=== PATIENT | male | born 1935 | race Caucasian/White ===

== ENCOUNTER → 2025-01-06 12:39 | Outpatient (REF) | payer MEDICARE, SELFPAY ==
[2025-01-06 13:17] LABS: % Basophils 0.6 % (0-2); % Eosinophils 2.6 % (0-6); % Immature Granulocytes 0.2 % (0-0.5); % Lymphocytes 36.9 % (20.5-51.1); % Neutrophils 50.7 % (42.2-75.2); Absolute Eosinophils 0.1 10^3/uL (0-0.7); Absolute Monocytes 0.5 10^3/uL (0.1-0.6); Absolute Neutrophils 2.7 10^3/uL (1.4-6.5); Hematocrit 40.5 % (39.0-52.0); Hemoglobin 13.3 g/dL (13.0-18.0); Mean Corp Hgb Conc. 32.8 g/dL (33.0-37.0); Mean Corpuscular Hgb 33.2 pg (27.0-31.0); Mean Platelet Volume 10.3 fL (7.4-10.4); Nucleated Red Blood Cells % 0 % (-); Platelet Count 150 10^3/uL (130-400); Red Blood Cell Count 4.01 10^6/uL (4.70-6.10); Red Cell Dist. Width 15.5 % (11.5-14.5); White Blood Cell Count 5.4 10^3/uL (4.8-10.8)
[2025-01-06 13:21] LABS: Blood Urea Nitrogen 10 mg/dl (9-20); Calcium 8.6 mg/dl (8.4-10.2); Carbon Dioxide 32 mmol/L (22-30); Chloride 104 mmol/L (98-107); Glucose 86 mg/dl (70-99); HDL Cholesterol 53 mg/dl; LDL Cholesterol, Calculated 68 mg/dl; Potassium 4.3 mmol/L (3.5-5.1); Sodium 137 mmol/L (135-145); Total Cholesterol 134 mg/dl (50-199); Triglyceride 66 mg/dl (10-149); Very Low Density Lipoprotein 13 mg/dl (0-30); eGFR > 60.00
[2025-01-06 13:38] LABS: Vitamin D, 25-OH*** 14.6 ng/mL (30-80)
[2025-01-06 13:52] LABS: TSH Reflex To Free T4 2.93 uIU/ml (0.47-4.68)
[2025-01-06 14:11] LABS: Vitamin B12 246 pg/ml (239-931)
[2025-01-07 09:20] LABS: Glycohemoglobin (HgbA1c) 5.5 % (4.0-5.6)
== END ==
LOC: OLABSOL 12:39
PROVIDERS: ATTENDING PHYSICIAN Nurse Practitioner Adult Health
DX: E78.5 Hyperlipidemia, unspecified (principal); D11.9 Benign neoplasm of major salivary gland, unspecified; D51.9 Vitamin B12 deficiency anemia, unspecified; E55.9 Vitamin D deficiency, unspecified; D64.9 Anemia, unspecified; R94.4 Abnormal results of kidney function studies; E03.9 Hypothyroidism, unspecified; Z79.899 Other long term (current) drug therapy
CPT/HCPCS: 36415; 80048; 80061; 82306; 82607; 83036; 84443; 85025

== ENCOUNTER 2025-05-05 18:33 | Inpatient (IN) | payer MEDICARE, SELFPAY ==
[2025-05-05 13:06] VITALS: BP 160/95
--- NOTE | 2025-05-05 13:36 | ED.GENMED ---
History of Present Illness
General
Chief Complaint: Abdominal Symptoms
Source: family
Time Seen by Provider: 05/05/25 13:15
History of Present Illness
History of Present Illness:
89-year-old female brought to the emergency room by ambulance from the [place]. Patient's son is with the patient and provides all the history. Patient resides at [place] due to memory care issues. Her baseline mental status is conversant in the
moment, able to toilet herself and feed herself. 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 Over the past 24 hours the patient has been speaking incoherently,
more confused. Today they were unable to get her out of bed because she seemed to have pain all over. Patient had a fall several days ago which resulted in a nasal fracture. She has ecchymosis about the face. Patient was seen at [place] after
this fall. Reportedly imaging was negative other than the nasal fracture. Patient does take Eliquis for atrial fibrillation. The patient herself is not aware of where she is. She does not offer any complaints when asked but does seem confused.
Phy Exam
Physical Exam
Physical Exam:
General: Sleeping but easily arousable. Oriented to person. Does recognize her son. Appears stated age
Vitals: unremarkable
Head: Ecchymotic area left forehead and ecchymosis noted about the nose and cheeks. Appears old.
Eyes: Pupils equal, EOMI
Throat: Airway intact, no exudates
Neck: Trachea midline
Lungs: Clear and equal b/l
Heart: irregular rate, no murmurs
Abd: Soft, Nontender, No pulsatile mass
Back: No tenderness palpation along the thoracic or lumbar spine. No ecchymosis noted on the back.
Neuro: Cranial nerves intact, muscle strength equal bilaterally
Skin: Warm, dry, no rash
Extremities: pulses equal b/l, ecchymosis left knee and lower leg
Course
Orders/Labs/Results
Orders:
Orders
05/05/25 13:31
Straight cath- Treatment ONCE
05/05/25 13:33
CT Head W/o Iv Contrast Urgent
Comment:
Reason For Exam: altered mental status
Complete Blood Count/With Diff Urgent
Comprehensive Metabolic Panel Urgent
Dig [Digoxin] Urgent
NT-proBNP Urgent
Comment: ADD ON
05/05/25 13:35
Electrocardiogram (*1) Urgent
Reason for Study: Fatigue / Weakness
EKG- Treatment ONCE
05/05/25 14:43
CT Abd/pelvis W Iv Cont Urgent
Comment:
Reason For Exam: abd pain, gross hematuria
05/05/25 14:45
Urinalysis Reflex To Culture Urgent
Date Specimen was Collected: 05/05/25
Time Specimen was Collected: 14:44
Urine Microscopic Reflex Cult Urgent
Urine Culture Urgent
TYREE Source: U
Specimen Description:
Date Specimen was Collected: 05/05/25
Time Specimen was Collected: 14:44
05/05/25 17:27
CefTRIAXone [Rocephin] 1,000 mg IV NOW STA
MetroNIDAZOLE 500 MG/100 ML [Flagyl 500 mg] 100 ml IV NOW
05/05/25 17:54
Admit/Transfer Patient As Directed
Co-Sign Provider:
Level of Care: Inpatient admission
Assign to:: Telemetry
Physician / Group: Arielle
Diagnosis: acute metabolic encephalopathy, possible acute cholecystitis, possible UTI
Reason for Telemetry: Arrhythmia
Date to Stop Telemetry: 05/08/25
Time to Stop Telemetry: 11:00
Reason for Hospitalization: acute metabolic encephalopathy, possible acute cholecystitis, possible UTI
Expected length of stay greater than two midnights?: Yes
ELOS- Estimated Length of Stay in days: 4
I certify the patient meets the requirements for IP care: Yes
PRN Pain Medication Management As Directed
May give lesser potent ordered pain med per pt: Yes
preference::
Protocol:: Medication orders for pain may be administered in a
manner that supports deferring to patient preference
when the pt is:
- Requesting an ordered lesser potent pain medication.
Least to most potent pain medications are defined
as: acetaminophen < NSAID < tramadol < opioids
(morphine, oxycodone, hydromorphone).
- Requesting a lesser dose of the same medication IF
ORDERED.
- Requesting a less intrusive route of administration
if both routes are prescribed by the provider (PO <
IV).
05/05/25 17:57
Code Status As Directed
Resuscitation Status: Do not resuscitate
Reached after discussion with pt or family/Healthcare POA: Yes
05/05/25 17:58
DNR Bracelet Application ONCE
05/05/25 18:01
Add On- LAB Stat
Tests Added?: probnp
05/08/25 11:00
DC Protocol for Telemetry ONCE
Abnormal Lab Results
05/05/25 05/05/25
13:33 14:45
RBC 3.77 L 10^6/uL
(4.70-6.10)
Hgb 12.5 L g/dL
(13.0-18.0)
Hct 37.8 L %
(39.0-52.0)
MCV 100.3 H fL
(80.0-94.0)
MCH 33.2 H pg
(27.0-31.0)
RDW 14.9 H %
(11.5-14.5)
MPV 10.6 H fL
(7.4-10.4)
Chloride 110 H mmol/L
(98-107)
Carbon Dioxide 31 H mmol/L
(22-30)
BUN 24 H mg/dl
(9-20)
Creatinine 0.5 L mg/dL
(0.7-1.3)
Total Bilirubin 1.7 H mg/dl
(0.2-1.3)
Total Protein 6.2 L g/dl
(6.3-8.2)
Albumin 3.4 L g/dl
(3.5-5.0)
Urine Ketones 1+ A
(Negative)
Ur Occult Blood Reflex 4+ A
(Negative)
Urine Bilirubin 1+ A
(Negative)
Urine Urobilinogen 3+ A
(Neg - 1+)
Leukocyte Esterase Rfl 1+ A
(Negative)
Urine RBC >100 A /HPF
(0-2)
Urine Albumin (Reflex) 3+ A
(Neg - Trace)
Digoxin 0.7 L ng/ml
(0.8-2.0)
05/05/25 13:33
05/05/25 13:33
Vital Signs
Initial and Last Documented VS:
Initial Vital Signs
Temp Pulse Resp BP Pulse Ox
98.2 F 93 20 160/95 99
05/05/25 13:06 05/05/25 13:06 05/05/25 13:06 05/05/25 13:06 05/05/25 13:06
Last Documented Vital Signs
Temp Pulse Resp BP Pulse Ox
98.2 F 101 14 150/76 96
05/05/25 13:06 05/05/25 18:41 05/05/25 18:30 05/05/25 18:00 05/05/25 18:30
MDM/Problems Addressed
Differential Diagnosis Includes:
Delayed subdural, CVA, electrolyte abnormality such as hyponatremia, urinary tract infection
MDM/Problems Addressed:
Presents with progressive confusion, apparently some abdominal pain earlier. Her abdominal exam today does not show significant pain to palpation. She urinated here and had gross bloody urine. Therefore CT of the abdomen pelvis obtained which
shows acute cholecystitis along with some inflammatory changes of the bowel with the bladder. Will start with IV antibiotics to cover abdomen. Patient will require hospitalization.
*Radiology
Radiology exam reviewed: radiology read reviewed
*Pulse Oximetry
SaO2: 97
Oxygen Mode of Delivery: Room air
Patient hypoxic: no
*Critical Care Note
Total Time (30-74mins, 75-104mins- exclusive of procedures): Not Applicable
ED Attending Note
-
Portions of this chart may have been created with voice recognition software.� Occasional wrong word or��sound alike� substitutions may have occurred due to the inherent limitations of voice recognition software.
Discharge Plan
Departure
Patient Disposition: Admit
Date of Disposition: 05/05/25
Time of Disposition: 17:33
Presentation/result/management discussed w/ accepting MD/DO: Hospitalist
Condition: Fair
Discharge Problem:
Altered mental status, Cholecystitis
Interventions
Interventions:
*Risk Screen - Suicide Last Done: 05/05/25 13:29
*General Assessment Last Done: 05/05/25 13:30
*Neglect/Abuse Screening Last Done: 05/05/25 13:29
*ED COVID-19 Vaccine History Last Done: 05/05/25 13:30
HN-[facility]-Pzhsxcclyg Assessment Last Done: 05/05/25 18:40
[2025-05-05 13:53] LABS: Hematocrit 37.8 % (39.0-52.0); Hemoglobin 12.5 g/dL (13.0-18.0); Mean Corp Hgb Conc. 33.1 g/dL (33.0-37.0); Mean Corpuscular Volume 100.3 fL (80.0-94.0); Nucleated Red Blood Cells % 0 % (-); Platelet Count 176 10^3/uL (130-400); Red Cell Dist. Width 14.9 % (11.5-14.5)
[2025-05-05 14:06] LABS: ALT (SGPT) 17 U/L (0-50); AST (SGOT) 36 U/L (17-59); Albumin 3.4 g/dl (3.5-5.0); Alkaline Phosphatase 73 U/L (38-126); Blood Urea Nitrogen 24 mg/dl (9-20); Calcium 8.7 mg/dl (8.4-10.2); Carbon Dioxide 31 mmol/L (22-30); Chloride 110 mmol/L (98-107); Digoxin 0.7 ng/ml (0.8-2.0); Glucose 89 mg/dl (70-99); Potassium 4.2 mmol/L (3.5-5.1); Sodium 141 mmol/L (135-145); Total Protein 6.2 g/dl (6.3-8.2); eGFR > 60.00
[2025-05-05 14:51] LABS: Urine Character Cloudy (Clear)
[2025-05-05 15:00] LABS: Urine Red Blood Cell >100 /HPF (0-2)
[2025-05-05 17:00] VITALS: BP 134/96
[2025-05-05 17:32] VITALS: BP 142/107
--- NOTE | 2025-05-05 17:37 | HPS.HSE ---
Family Physician
-
Family Physician: JULIO VERA NP
Chief Complaint
-
confusion
History of Present Illness
89 y/o F with PMHx:
Dementia
Recent nasal bone fracture
HLD
PAF
who presents with confusion. Recently the patient had a fall and was seen at [facility] where she was diagnosed with a nasal fracture. History is obtained from patient's son at bedside. Over the last 24 hours she has had increased
confusion and her speech has been more disorganized. Due to the patient's dementia she cannot provide her own history. History is obtained from the patient's son at bedside. There are no reports of fevers, diaphoresis, chest pain, shortness of
breath, cough, nausea, vomiting, diarrhea. The son does mention that she has been on the Lasix and recently the dose was increased due to increased lower extremity edema.
On review of the documents from the [facility] transfer of care form it stated that yesterday the patient had congestion and shortness of breath and was given an antibiotic and Mucinex. Today the patient had
abdominal pain and blood in the toilet. In the ER the patient had gross hematuria.
Medical History
Past Medical History
Past Medical History: Reports Other (as per HPI)
Past Surgical History: Reports Other (N/A)
Social History
Tobacco: Non-smoker
Alcohol: None
Drug: None
Family History
Family History: Not pertinent
Allergies / Home Medications
Allergies reflects when Allergies were last updated in [employer].
Home Medications with original date entered in [employer]
Allergy/Medication List:
Allergies
Allergy/AdvReac Type Severity Reaction Status Date / Time
Penicillins Allergy Unknown Unknown Verified 05/05/25 13:14
Home Medications
alprazolam 0.25 mg tablet 0.25 mg PO DAILY 05/05/25
apixaban 2.5 mg tablet (Eliquis) 2.5 mg PO BID 05/05/25
azithromycin 250 mg tablet 0 mg PO .COMPLEX 05/05/25
cholecalciferol (vitamin D3) 25 mcg (1,000 unit) tablet (Vitamin D3) 25 mcg PO DAILY 05/05/25
digoxin 125 mcg (0.125 mg) tablet 125 mcg PO DAILY 05/05/25
docusate sodium 100 mg capsule 100 mg PO DAILY 05/05/25
donepezil 10 mg tablet 10 mg PO HS 05/05/25
escitalopram oxalate 10 mg tablet 10 mg PO DAILY 05/05/25
furosemide 20 mg tablet 20 mg PO DIRECTED 05/05/25
guaifenesin 600 mg tablet, extended release 12 hr 600 mg PO BID 05/05/25
lidocaine 4 % topical patch 1 patch topical DAILY 05/05/25
loperamide 2 mg capsule 2 mg PO Q4HPRN PRN loose stools 05/05/25
metoprolol succinate 25 mg tablet,extended release 24 hr 25 mg PO DAILY 05/05/25
naproxen 500 mg tablet 500 mg PO BID 05/05/25
phenylephrine 0.25 %-mineral oil 14 %-petrolatm 74.9 % rectal ointment (Preparation H) 1 applic FL Q6HPRN PRN rectal pain 05/05/25
simvastatin 10 mg tablet 10 mg PO DAILY 05/05/25
Review of Systems
-
Unable to obtain full review of systems at this time due to: Dementia
Physical Exam
Vital Signs
Vital Signs
Temp Pulse Resp BP Pulse Ox
98.2 F 96 22 160/95 96
05/05/25 13:06 05/05/25 17:00 05/05/25 13:30 05/05/25 13:06 05/05/25 17:00
Physical Exam
General: Other (.)
Laboratory Results
-
05/05/25 13:33
05/05/25 13:33
Laboratory Results
Total Bilirubin 1.7 mg/dl (0.2-1.3) H 05/05/25 13:33
AST 36 U/L (17-59) 05/05/25 13:33
ALT 17 U/L (0-50) 05/05/25 13:33
Alkaline Phosphatase 73 U/L (38-126) 05/05/25 13:33
Impression/Plan
-
Gen: NAD, AAOx1
Eyes: EOMI, PERRLA, no scleral icterus.
ENMT: Nasal bridge abrasion, nasal and periorbital ecchymoses
Neck: supple.
CV: RRR, +S1/S2, no m/r/g.
Resp: CTAB, no rales, wheezes, or rhonchi.
Abd: +BS, soft, NT, ND
Skin: No rashes. 2+ bilateral lower extremity edema, ecchymoses throughout the left lower extremity
Neuro: CN 2-12 intact, non-focal.
Psych: Normal mood and affect.
CT brain: No acute intracranial abnormality noted.
CT A/P w/o contrast:
1. Mild diffuse pancolitis (probably infectious in etiology).
2. Severe colonic diverticulosis.
3. Small volume of pelvic ascites.
4. Moderate enteritis throughout the jejunum.
5. Severe gallbladder wall thickening, gallbladder distention, and cholelithiasis.
6. Mild hepatomegaly with suggestion of passive hepatic venous congestion.
7. Mild diffuse urinary bladder wall thickening suggesting cystitis.
8. Moderate cardiomegaly with evidence for right heart failure.
9. Moderate-sized right and small left pleural effusions.
10. Severe multilevel lumbar discogenic degenerative disease.
Acute metabolic encephalopathy:
-in the setting of underlying dementia/baseline cognitive dysfunction
-U/A with > 100 RBCs, unable to assess WBC as obscured by RBCs, 1+ LE, nitrite negative, 6-10 squamous cells
-CT A/P notable for pancolitis, moderate enteritis throughout the jejunum, severe GB wall thickening, GB distention, and cholelithiasis
-Patient given Rocephin and Flagyl in the ER, will continue
-Supportive IV fluids, NPO, surgical and GI evaluation
Hematuria:
-exacerbated by Eliquis
-hold Eliquis
-trend Hb
-c/s urology
PAF:
-cont BB/Dig
-hold Eliquis with hematuria
B/L LE edema:
-with worsening bilateral lower extremity edema requiring an increase in the patient's Lasix prior to admission I am concerned the patient has underlying congestive heart failure. As per discussion with the patient's family she has never had an
official diagnosis of congestive heart failure.
-check echocardiogram and proBNP
-daily weights, I's/O's
Dementia:
-cont Aricept/lexapro
DNR
DVT proph: With edema in both lower extremities and ecchymoses in the left lower extremity in the setting of hematuria, I am opting for venous foot pumps only at this time for DVT prophylaxis
[2025-05-05 18:00] VITALS: BP 150/76
[2025-05-05] MEDS: ROCEPHIN 1000 MG IV (18:27)
[2025-05-05] MEDS: FLAGYL 500 MG 100 IV (18:29)
[2025-05-05 20:13] VITALS: BP 154/103
[2025-05-05] MEDS: TYLENOL 650 MG PO (21:01)
[2025-05-05] MEDS: ARICEPT 10 MG PO (21:01)
[2025-05-05] MEDS: D5/0.45%NACL 1000 IV (21:20)
[2025-05-05 23:31] VITALS: BP 139/89
[2025-05-06] VITALS (7 sets, daily range): BP systolic 105–151; BP diastolic 62–88; PULSE 81; O2SAT 96; BMI 21.4
[2025-05-06] MEDS: FLAGYL 500 MG 100 IV ×3 (01:07→18:22)
--- NOTE | 2025-05-06 05:34 | W.PN.UPDATE ---
Addendum entered and electronically signed by PHILOMENA Pricne 05/06/25 05:39:
~ 5:30 am BP 151/86, HR 110-120's. (added BP)
Original Note:
Update Note
Progress Note Update
~ 5:30 am, Pt in afib, HR 110-120's. Metoprolol 25 mg PO am dose given early.
[2025-05-06] MEDS: TOPROL XL 25 MG PO ×2 (05:36→08:34)
--- NOTE | 2025-05-06 05:39 | PTCARENOTE ---
pt was admitted to 4E. AAOX1. forgetful and confuse. Afib 90-100's in the monitor. Lung sounds are diminished, dyspneic w/ exertion. saO2 94% RA. tachypneic. abd tender to palpitation. Hematuria. Pt was bladder scan twice. OOBx1. Pt HR went up to
120's and metoprolol 25 mg AM dose was given early per D[employer]AME OPERATOR. Call lin within reach.
[2025-05-06 07:36] LABS: Hematocrit 35.4 % (37.0-47.0); Hemoglobin 11.6 g/dL (12.0-16.0); Mean Corp Hgb Conc. 32.8 g/dL (33.0-37.0); Mean Corpuscular Volume 99.7 fL (81.0-99.0); Platelet Count 158 10^3/uL (130-400); Red Cell Dist. Width 14.6 % (11.5-14.5)
[2025-05-06 08:00] LABS: ALT (SGPT) 16 U/L (0-35); AST (SGOT) 30 U/L (14-36); Albumin 3.0 g/dl (3.5-5.0); Alkaline Phosphatase 71 U/L (38-126); Blood Urea Nitrogen 20 mg/dl (7-17); Calcium 8.4 mg/dl (8.4-10.2); Carbon Dioxide 26 mmol/L (22-30); Chloride 111 mmol/L (98-107); Estimated Creatinine Clearance 57 ml/min; Glucose 91 mg/dl (70-99); Potassium 3.8 mmol/L (3.5-5.1); Sodium 140 mmol/L (135-145); Total Protein 5.5 g/dl (6.3-8.2); eGFR > 60.00
--- NOTE | 2025-05-06 08:05 | W.PN.HOSP.TC ---
Today's Communication/Plan
-
see plan
Assessment / Plan
Assessment / Plan
Gen: NAD, AAOx3.
Eyes: EOMI, PERRLA, no scleral icterus.
Neck: supple.
CV: RRR, +S1/S2, no m/r/g.
Resp: CTAB, no rales, wheezes, or rhonchi.
Abd: +BS, soft, NT, ND
Skin: No rashes.
Neuro: CN 2-12 intact, non-focal.
Psych: Normal mood and affect.
Gen: NAD, AAOx1
Eyes: EOMI, PERRLA, no scleral icterus.
ENMT: Nasal bridge abrasion, nasal and periorbital ecchymoses
Neck: supple.
CV: RRR, +S1/S2, no m/r/g.
Resp: CTAB, no rales, wheezes, or rhonchi.
Abd: +BS, soft, NT, ND
Skin: No rashes. 2+ bilateral lower extremity edema, ecchymoses throughout the left lower extremity
Neuro: CN 2-12 intact, non-focal.
Psych: Normal mood and affect.
CT brain: No acute intracranial abnormality noted.
CT A/P w/o contrast:
1. Mild diffuse pancolitis (probably infectious in etiology).
2. Severe colonic diverticulosis.
3. Small volume of pelvic ascites.
4. Moderate enteritis throughout the jejunum.
5. Severe gallbladder wall thickening, gallbladder distention, and cholelithiasis.
6. Mild hepatomegaly with suggestion of passive hepatic venous congestion.
7. Mild diffuse urinary bladder wall thickening suggesting cystitis.
8. Moderate cardiomegaly with evidence for right heart failure.
9. Moderate-sized right and small left pleural effusions.
10. Severe multilevel lumbar discogenic degenerative disease.
Echo: EF 30-35%. Global hypokinesis with septal and apical dyskinesis. Mildly enlarged RV size. Normal RV systolic function. Severely dilated LA. Massively dilated RA. Mild to mod MR/AR. Very severe (torrential) TR. Estimated PASP 40-45 mmHg.
Acute metabolic encephalopathy:
-in the setting of underlying dementia/baseline cognitive dysfunction
-U/A with > 100 RBCs, unable to assess WBC as obscured by RBCs, 1+ LE, nitrite negative, 6-10 squamous cells
-CT A/P notable for pancolitis, moderate enteritis throughout the jejunum, severe GB wall thickening, GB distention, and cholelithiasis
-cont Rocephin/Flagyl
-as per discussion with Dr. Sanchez, no acute cholecystitis at this time. CT scan findings are likely due to passive congestion from congestive heart failure.
-advanced to clears
-stop IVFs with acute HFrEF below
-appreciate GI. As per discussion with pt's son, conservative management only. He would not want the patient have a colonoscopy.
-patient does have rectal prolapse which can lead to rectal bleeding.
Hematuria:
-exacerbated by Eliquis
-holding Eliquis
-trend Hb
-urology saw in c/s
-will monitor degree of hematuria over the next 24 hours prior to decision regarding resumption of Eliquis
PAF:
-with RVR
-increase Toprol XL to 50mg daily
-cont Dig
-holding Eliquis with hematuria as above
Acute HFrEF:
-B/L LE edema that was worsening on admission
-proBNP 2320
-case discussed with Dr. Gardner. EF 30%, severe TR
-c/s cards
-daily weights, I/O's
-initiate FR once diet started
-start Lasix 40mg IV BD
-cont BB
-further GDMT as hemodynamics allow
Dementia:
-cont Aricept/lexapro
Considering the patient's overall burden of pathology and her current active problem of acute heart failure with reduced ejection fraction in the setting of dementia it is reasonable to consult palliative care.
DNR
DVT proph: With edema in both lower extremities and ecchymoses in the left lower extremity in the setting of hematuria, I am opting for venous foot pumps only at this time for DVT prophylaxis. Might resume Eliquis tomorrow as above.
Total time spent on today's encounter was 50 minutes which included time spent in counseling the patient/family regarding diagnosis and treatment plan as listed above, goals of care, and symptom management. Case was discussed with nursing staff,
specialists, and care coordinators/case management. All labs and imaging personally reviewed by me. Remainder the time spent in detailed review of previous records, lab data, imaging, and other medical provider documentation.
Anticipated Discharge: > 48 hours
Subjective/Interval History
-
Date of Service: May 06, 2025
Objective Data
-
Labs:
Laboratory Results
05/06/25
07:09
WBC 4.9
Hgb 11.6 L
Hct 35.4 L
Plt Count 158
Sodium 140
Potassium 3.8
Chloride 111 H
Carbon Dioxide 26
BUN 20 H
Creatinine 0.5 L
Glucose 91
Calcium 8.4
Total Bilirubin 1.6 H
AST 30
ALT 16
Alkaline Phosphatase 71
Vital Signs:
Vital Signs
Temp Pulse Resp BP Pulse Ox
97.7 F 111 16 131/88 97
05/06/25 07:46 05/06/25 07:46 05/06/25 07:46 05/06/25 07:46 05/06/25 07:46
I&O
05/05/25 05/06/25 05/07/25
06:59 06:59 06:59
Intake Total 450 / 450
Output Total 100 / 100
Balance 350 / 350
[2025-05-06] MEDS: LIDOCAINE 4% PATCH 1 PATCH TOPICAL (08:32)
[2025-05-06] MEDS: COLACE 100 MG PO (08:32)
[2025-05-06] MEDS: LEXAPRO 10 MG PO (08:32)
[2025-05-06] MEDS: LIPITOR 10 MG PO (08:32)
--- NOTE | 2025-05-06 09:12 | CON.CAR ---
Addendum entered and electronically signed by Irineo Gardner MD 05/06/25 11:14:
Patient seen and examined in collaboration with LEATHER STAKER; agree with below.
- 89-year-old female with likely permanent atrial fibrillation (on Eliquis), dyslipidemia, and significant dementia; cardiology consulted for an LVEF of 30% and very severe TR on echocardiogram.
- The patient had hematuria in the ER; Eliquis now being held.
- Patient also had a recent fall and suffered a nasal fracture.
- Uncertain as to whether the patient can safely resume anticoagulation due to bleeding risk and fall risk; especially given her dementia, placing her back on Eliquis would likely be high risk.
- Conservative management from a cardiac standpoint in terms of her CHF; poor candidate for aggressive measures.
- Continue Lasix 40 mg IV BID.
- Continue Toprol-XL 50 mg daily
- Continue digoxin 125 mcg p.o. daily.
- Will start lisinopril 5 mg daily for GDMT.
- Will start spironolactone 12.5 mg daily for GDMT.
- No SGLT2 inhibitor secondary to possible UTI/hematuria.
- Colitis management as per primary team/GI.
- Will reevaluate tomorrow.
Original Note:
Consultation
Consultation Request
Date/Time Consultation Requested: 05/06/25 0850
Date/Time Consultation Performed: 05/06/25 0930
Requesting Provider: Dr. Guzmán
Performing Provider: Anisa QUACH for Dr. Gardner
Reason for Consultation: cardiomyopathy, tricuspid regurgitation
Medical History
-
Chief Complaint: abdominal pain
History of Present Illness:
89 y/o female with history fo AFIB on Eliquis, dementia, dyslipidemia. She had a recent fall with nasal fracture ([place]). She is here from her health facility after she reported abdominal pain. She was also felt to be more confused. Hematuria was
seen in ER. CT scan is abnormal as below. She is on antibiotics. She has BLE edema and echo was done and showed EF 30% and very severe TR (details as below), and so we are consulted. She has dementia and is not a good historian, but is calm and
pleasant and denies any pain at this time. She is in no distress at the time of my assessment.
Past Medical History
Past Medical History: Arrhythmias, Hypercholesterolemia and Other (dementia)
Social History
Living: Other ([facility])
Family History
Family History: Reviewed & Not Pertinent
Allergies / Home Medications
Allergy/AdvReac Type Severity Reaction Status Date / Time
Penicillins Allergy Unknown Verified 05/05/25 20:00
�Medication �Instructions �Recorded �Confirmed �Type
alprazolam 0.25 mg tablet 0.25 mg PO DAILY 05/05/25 05/05/25 History
apixaban 2.5 mg tablet (Eliquis) 2.5 mg PO BID 05/05/25 05/05/25 History
azithromycin 250 mg tablet 0 mg PO .COMPLEX 05/05/25 05/05/25 History
cholecalciferol (vitamin D3) 25 25 mcg PO DAILY 05/05/25 05/05/25 History
mcg (1,000 unit) tablet (Vitamin
D3)
digoxin 125 mcg (0.125 mg) tablet 125 mcg PO DAILY 05/05/25 05/05/25 History
docusate sodium 100 mg capsule 100 mg PO DAILY 05/05/25 05/05/25 History
donepezil 10 mg tablet 10 mg PO HS 05/05/25 05/05/25 History
escitalopram oxalate 10 mg tablet 10 mg PO DAILY 05/05/25 05/05/25 History
furosemide 20 mg tablet 20 mg PO DIRECTED 05/05/25 05/05/25 History
guaifenesin 600 mg tablet, 600 mg PO BID 05/05/25 05/05/25 History
extended release 12 hr
lidocaine 4 % topical patch 1 patch topical DAILY 05/05/25 05/05/25 History
loperamide 2 mg capsule 2 mg PO Q4HPRN PRN loose stools 05/05/25 05/05/25 History
metoprolol succinate 25 mg 25 mg PO DAILY 05/05/25 05/05/25 History
tablet,extended release 24 hr
naproxen 500 mg tablet 500 mg PO BID 05/05/25 05/05/25 History
phenylephrine 0.25 %-mineral oil 1 applic NV Q6HPRN PRN rectal pain 05/05/25 05/05/25 History
14 %-petrolatm 74.9 % rectal
ointment (Preparation H)
simvastatin 10 mg tablet 10 mg PO DAILY 05/05/25 05/05/25 History
Review of Systems
-
Unable to obtain full review of systems at this time due to: Dementia
History Source: Other (chart)
Abdomen/GI: Abdominal Pain
Physical Exam
Vital Signs
Temp Pulse Resp BP Pulse Ox
97.7 F 111 16 131/88 97
05/06/25 07:46 05/06/25 08:34 05/06/25 07:46 05/06/25 08:34 05/06/25 07:46
Lab Results
05/06/25 07:09
05/06/25 07:09
Qua-E-Rvukzbyfcxi Pept 2320 pg/ml 05/05/25 13:33
Physical Exam
General: Well Developed, Well Nourished and No Apparent Distress
HEENT: Normocephalic and Anicteric
Respiratory: Crackles (b/l bases)
Cardiac: Irregular Rhythm and Murmur (II/IV diastolic)
Musculoskeletal: Edema (+1-2 BLE edema)
Skin: Warm and Dry
Neuro: Awake, Alert and Oriented (to self only)
Psych: Calm
Impression / Plan
-
HFrEF: possibly acute, but not clear
-05/06/25: Left ventricular ejection fraction is 30-35%. Global hypokinesis with septal and apical dyskinesis. Mildly enlarged right ventricular size. Normal right ventricular systolic function. Severely dilated left atrium. Massively dilated right
atrium. Mild to moderate mitral regurgitation. Mild to moderate aortic regurgitation. Very severe (torrential) tricuspid regurgitation. Estimated pulmonary artery pressure of 40-45 mmHg. Pleural effusion present.
-conservative management appropriate here- will add GDMT- metoprolol increased, spironolactone and lisinopril added. Question of UTI, so will not add SGLT2I at this time.
-type of CM unknown. Checking trops.
-agree with IV lasix, which requires intensive monitoring
AFIB, likely permanent:
-rate is okay, follow with increase in rate meds
-on metoprolol, digoxin, and Eliquis as OP. Eliquis is held due to hematuria.
Hematuria:
-urology is consulted
-Eliquis held
-question of UTI as well, on ABX
Pancolitis, enteritis, GB thickening:
-Abd/pelvis CT: 1.Mild diffuse pancolitis (probably infectious in etiology). 2. Severe colonic diverticulosis. 3. Small volume of pelvic ascites. 4. Moderate enteritis throughout the jejunum. 5. Severe gallbladder wall thickening, gallbladder
distention, and cholelithiasis. 6. Mild hepatomegaly with suggestion of passive hepatic venous congestion. 7. Mild diffuse urinary bladder wall thickening suggesting cystitis.8. Moderate cardiomegaly with evidence for right heart failure.9.
Moderate-sized right and small left pleural effusions. 10. Severe multilevel lumbar discogenic degenerative disease.
-patient on ABX
-GI c/s
Dementia:
-on meds and lives in facility
Data Reviewed
-
EKG: Tracing Personally Visualized and interpreted (AFIB in 80's)
CT Scan: Report Reviewed by me (as ntoed)
Medical Tests (Nuc Med, Echo etc): Report Reviewed by me (as noted)
Labs: Labs Reviewed by me
[2025-05-06] MEDS: LASIX 40 MG IV ×2 (09:32→16:38)
--- NOTE | 2025-05-06 09:56 | CON.GI ---
Addendum entered and electronically signed by Elsie Greenfield DO 05/06/25 12:09:
The patient was seen and examined by me independently in collaboration with the nurse practitioner.
Past medical history/social history/medications/allergies/family history reviewed.
Lab data and imaging data reviewed.
Leni Cantor is an 89 y.o. female with pmhx atrial fibrillation on Eliquis and memory issues brought in with worsening mental status, confused and garbled speech per son. Patient has dementia, unable to obtain history. She denies any nausea,
vomiting, abdominal pain at the moment. It was documented that she had worsening congestion and SOB, given an antibioic and mucinex. Yesterday, she had abdominal pain, blood in the toilet. In the ER, was noted to have gross hematuria. CT A/P with IV
contrast shows cardiomegaly with severe right atrial enlargement. Moderate right and small left pleural effusions with adjacent compressive subsegmental atelectasis. The liver is mildly enlarged. Intrahepatic inferior vena cava and hepatic veins
are distended consistent with right heart failure. Mild diffuse hepatic steatosis. The gallbladder is distended with cholelithiasis. There is severe wall thickening and submucosal edema throughout the gallbladder wall. Mild diffuse pancreatic
parenchymal atrophy. The stomach is nearly completely collapsed. There is mild wall thickening throughout the duodenum and moderate wall thickening throughout most of the jejunum. Ileal small bowel loops appear normal without evidence of abnormal
distention or thickening. Severe diverticulosis throughout the ascending colon. A mild amount of circumferential wall thickening throughout the proximal mid transverse colon. There is mild circumferential wall thickening throughout the descending
colon. There is severe diverticulosis throughout the distal descending colon and proximal sigmoid colon. There is small volume of pelvic ascites. Evidence of JANNETH-BSO. Mild diffuse urinary bladder wall thickening. Severe multilevel lumbar
discogenic degenerative disease.
Of note, she was recently hospitalized at [facility] on 04/26/2025 after being found down, decreased mental status and brought in as a level 2 trauma. She was found to have a nasal fracture but otherwise no acute abnormalities found.
Hemoglobin 10.9 --> 12.5 --> 11.6, PLt 158
BUN 25 --> 24 -->20
89 y.o. with afib on eliquis and dementia admitted with change in mental status, abdominal pain, and hematochezia with hematuria upon arrival, found to have evidence of right-sided heart failure, acute cholecystitis, enteritis, colitis and cystitis
on CT A/P.
Plan:
-Hemoglobin overall stable. Urine with occult blood and >100 RBC.
-Discussed with son, only wants conservative management, no colonoscopy.
-Hemoglobin stable, prolapse on exam, could have some mild rectal irritation, can use topical hydrocortisone
-If diarrhea, check stool studies, including c.diff and stool culture
-Trend H&H, if concern for active/hemodynamically unstable GI bleeding, get CTA
-Okay for clears, advance as tolerated
GI will sign off, please call with questions
Original Note:
Consultation
-
Date/Time Consultation Requested: 05/05/251999
Date/Time Consultation Performed: 05/06/25 09
Requesting Provider: Nakul Guzmán MD
Performing Provider: PHILOMENA Gallego, Bhavani Greenfield DO
Reason for Consultation: rectal bleeding
Medical History
Chief Complaint / HPI
History of Present Illness:
Pt is a 89yo with hx afib on Eliquis, dementia, HTN, hyperlipidemia, recent fall with nasal fracture presents to ER with change in mental status with recent congestion with Guaifenesin and Zithromax therapy. She was also note with lower abdominal
pain and bright red blood on the toilet. During recent admission she had walker CT scan 04/26/25 with fall with normal abdominal imaging. Since admission she is noted wih brown/burgundy stool. She repeated CT A/p since admission with noted with
diffuse walker colitis, jejunal enteritis, diverticulosis, small amount pelvic ascites, severe GBWT, HM with passive congestion, cystitis, CM with right heart failure, DDD and moderate right and small left effusion.
At this time pt is forgetful. Per review with family complaints of intermittent abdominal pain in past of unclear cause. No known hx colonoscopy in past. hx dysphagia with stress years ago. No diarrhea constipation or rectal bleeding that
they are aware of in past.
Past Medical History
Past Medical History: Arrhythmias (afib on Eliquis), HTN, Hypercholesterolemia, Psychiatric (dementia ) and Other (fall with nasal fx )
Past Surgical History: Gynecological (hysterectomy)
Social History
Tobacco: Non-Smoker
Alcohol: None
Drug: None
Living: Other ([facility] )
Employment: Retired
Family History
Family History: Other (no family hx colon CA or polyps)
Allergies / Home Medications
Allergy/AdvReac Type Severity Reaction Status Date / Time
Penicillins Allergy Unknown Verified 05/05/25 20:00
�Medication �Instructions �Recorded
alprazolam 0.25 mg tablet 0.25 mg PO DAILY 05/05/25
apixaban 2.5 mg tablet (Eliquis) 2.5 mg PO BID 05/05/25
azithromycin 250 mg tablet 0 mg PO .COMPLEX 05/05/25
cholecalciferol (vitamin D3) 25 25 mcg PO DAILY 05/05/25
mcg (1,000 unit) tablet (Vitamin
D3)
digoxin 125 mcg (0.125 mg) tablet 125 mcg PO DAILY 05/05/25
docusate sodium 100 mg capsule 100 mg PO DAILY 05/05/25
donepezil 10 mg tablet 10 mg PO HS 05/05/25
escitalopram oxalate 10 mg tablet 10 mg PO DAILY 05/05/25
furosemide 20 mg tablet 20 mg PO DIRECTED 05/05/25
guaifenesin 600 mg tablet, 600 mg PO BID 05/05/25
extended release 12 hr
lidocaine 4 % topical patch 1 patch topical DAILY 05/05/25
loperamide 2 mg capsule 2 mg PO Q4HPRN PRN loose stools 05/05/25
metoprolol succinate 25 mg 25 mg PO DAILY 05/05/25
tablet,extended release 24 hr
naproxen 500 mg tablet 500 mg PO BID 05/05/25
phenylephrine 0.25 %-mineral oil 1 applic MI Q6HPRN PRN rectal pain 05/05/25
14 %-petrolatm 74.9 % rectal
ointment (Preparation H)
simvastatin 10 mg tablet 10 mg PO DAILY 05/05/25
Review of Systems
-
Unable to obtain full review of systems at this time due to: Dementia
History Source: Patient and Family
Constitutional: Reports No Symptoms
EENT: Reports No Symptoms
Respiratory: Reports No Symptoms
Abdomen/GI: Reports Abdominal Pain
: Reports No Symptoms
Musculoskeletal: Reports No Symptoms
Skin: Reports No Symptoms
Neurological: Reports Other (confusion)
Endocrine: Reports No Symptoms
Hematologic/Lymphatic: Reports Bleeding
Vital Signs
Temp Pulse Resp BP Pulse Ox
97.7 F 111 16 131/88 97
05/06/25 07:46 05/06/25 09:32 05/06/25 07:46 05/06/25 09:32 05/06/25 07:46
Physical Exam
Exam
General: Other (confused elderly female with facial bruising)
HEENT: Normocephalic and Anicteric
Respiratory: Clear
Cardiac: Other (tachy)
GI: Soft, Non Tender and Non Distended
Rectal: Other (red blood with noted rectal prolapse with being on comode, no mass and brown liquid mucously stools)
Musculoskeletal: No Clubbing and No Cyanosis
Skin: Warm and Dry
Neuro: Awake, Alert and Other (forgetful)
Psych: Calm
Results
WBC 4.9 10^3/uL (4.8-10.8) 05/06/25 07:09
Hgb 11.6 g/dL (12.0-16.0) L 05/06/25 07:09
Hct 35.4 % (37.0-47.0) L 05/06/25 07:09
MCV 99.7 fL (81.0-99.0) H 05/06/25 07:09
Plt Count 158 10^3/uL (130-400) 05/06/25 07:09
Absolute Neuts (auto) 3.3 10^3/uL (1.4-6.5) 05/05/25 13:33
Sodium 140 mmol/L (135-145) 05/06/25 07:09
Potassium 3.8 mmol/L (3.5-5.1) 05/06/25 07:09
Chloride 111 mmol/L (98-107) H 05/06/25 07:09
Carbon Dioxide 26 mmol/L (22-30) 05/06/25 07:09
BUN 20 mg/dl (7-17) H 05/06/25 07:09
Creatinine 0.5 mg/dL (0.6-1.0) L 05/06/25 07:09
Calcium 8.4 mg/dl (8.4-10.2) 05/06/25 07:09
Total Bilirubin 1.6 mg/dl (0.2-1.3) H 05/06/25 07:09
AST 30 U/L (14-36) 05/06/25 07:09
ALT 16 U/L (0-35) 05/06/25 07:09
Alkaline Phosphatase 71 U/L (38-126) 05/06/25 07:09
Diagnostic Image Results:
05/05/25 CT Abd/pelvis W Iv Cont
1. Mild diffuse pancolitis (probably infectious in etiology).
2. Severe colonic diverticulosis.
3. Small volume of pelvic ascites.
4. Moderate enteritis throughout the jejunum.
5. Severe gallbladder wall thickening, gallbladder distention, and cholelithiasis.
6. Mild hepatomegaly with suggestion of passive hepatic venous congestion.
7. Mild diffuse urinary bladder wall thickening suggesting cystitis.
8. Moderate cardiomegaly with evidence for right heart failure.
9. Moderate-sized right and small left pleural effusions.
10. Severe multilevel lumbar discogenic degenerative disease.
Prior GI Procedures:
EGD: none known per family
Colonoscopy: no know screening per family
Assessment / Plan
-
Pt is a 89yo with hx afib on Eliquis, dementia, HTN, hyperlipidemia, recent fall with nasal fracture presents to ER with change in mental status with recent congestion with Guaifenesin and Zithromax therapy. She was also note with lower abdominal
pain and bright red blood on the toilet. During recent admission she had walker CT scan 04/26/25 with fall with normal abdominal imaging. Since admission she is noted wih brown/burgundy stool. She repeated CT A/p since admission with noted with
diffuse walker colitis, jejunal enteritis, diverticulosis, small amount pelvic ascites, severe GBWT, HM with passive congestion, cystitis, CM with right heart failure, DDD and moderate right and small left effusion. rectal exam with brown liquid stool
and red blood with prolapse
-pancolitis/ jejunal enteritis, on CT
gallbladder wall thickening, distention, cholelithiasis
-HM with passive congestion
-mild anemia
-cystitis
-concern for right heart failure on CT with b/l effusion
-rectal prolapse on exam
-diarrhea
-recent fall with nasal fracture
other med problems:
-afib on Eliquis
-dementia
-HTN
-hyperlipidemia
-diverticulitis
-ddd
PLAN:Etiology of loose stool possible infectious colitis, ischemic process with congestion vs other
some rectal bleeding may be local process with prolapse on exam
check stools studies
trend stool record and hbg
ok for clear diet advance as tolerated
cont abx
discussed results with son with dementia would want conservative measure and no colonoscopy
Eliquis hold -discussed with fall risk with family
for cards and surgical eval with other CT findings
-
-
Thank you for consultation and allowing me to participate in the patient's care. Please call the [facility] tender GI physician during the after hours with any questions or concerns.
--- NOTE | 2025-05-06 10:20 | W.PN.URO.CBU ---
Today's Communication / Plan
-
no gu intervention
Assessment / Plan
-
possible blood in toilet none her average cyt scan no gu patholgy
Diagnosis
-
Date of Service: May 06, 2025
-
Patient Diagnosis:possible hematuria unkbnown source ct scan mld cystiti no cancer stones hydro
Post Op Day:
Subjective
-
confused
Objective
-
Vital Signs
Temp Pulse Resp BP Pulse Ox
97.7 F 111 16 131/88 97
05/06/25 07:46 05/06/25 09:32 05/06/25 07:46 05/06/25 09:32 05/06/25 07:46
Intake and Output
05/05/25 05/06/25 05/07/25
06:59 06:59 06:59
Intake Total 450 / 450
Output Total 100 / 100
Balance 350 / 350
Intake:
IV fluids (Total) 350 / 350
IV piggybacks 100 / 100
Output:
Urine, Voided 100 / 100
Laboratory Results
05/06/25 07:09
05/06/25 07:09
Review of Systems
-
: Bleeding (poor historian blood in toilet )
Physical Exam
-
General - well developed, well nourished, no acute distress
Chest - clear bilaterally
Abdomen - soft, non-tender, positive bowel sounds, no CVAT, no incisional pain or distention
Genitalia - normal
Rectal - normal
Skin - warm & dry with no rash
Neuro - AOx3, no motor deficits
Extremities - no clubbing, no cyanosis, no edema
Incision - clean, dry
Dressing - clean, dry, intact
Care Review
Data Reviewed
Discussed with: Nursing
CT Scan: Image Pers Reviewed
[2025-05-06] MEDS: ALDACTONE 12.5 MG PO (11:00)
[2025-05-06] MEDS: LANOXIN 125 MCG PO (11:00)
[2025-05-06] MEDS: ZESTRIL 5 MG PO (11:00)
[2025-05-06 11:11] LABS: Troponin I 0.014 ng/ml
--- NOTE | 2025-05-06 11:36 | CON.GS ---
Addendum entered and electronically signed by Francesco Sanchez MD 05/06/25 14:16:
Patient seen and examined with ophthalmic surgical assistant. Agree with documented consultation note with additions/addendum noted here.
HPI: 89-year-old female who lives in memory care at [facility] who presented to the emergency department secondary to change in mental status, increased confusion and generalized pain. She had a recent fall with resultant nasal fracture
but negative workup otherwise and was discharged from [facility].
This a.m. patient is pleasant and oriented to herself only. She is conversant for our discussions but a poor historian due to her underlying dementia. She denies abdominal pain. She is not aware that she is in the hospital.
PMH notable for dementia, hyperlipidemia, P A-fib
AFVSS
NAD AAO x 1, pleasant and cooperative in her hospital bed lying comfortably
ABD: Soft, nondistended, no tenderness on palpation in any quadrant. Specifically no right upper quadrant tenderness. No palpable mass in the right upper quadrant. No clinical Carmona sign.
Laboratory testing reviewed. White blood cell count normal and no shift on differential. Chemistry panel essentially unremarkable except for slight elevation of total bilirubin but AST ALT and alkaline phosphatase are normal.
CT imaging personally reviewed and interpreted as well as radiologist report. Bilateral pleural effusions, trace perihepatic fluid. Pericholecystic fluid. Probable gallstones but no large calcified ones. Gallbladder does not appear to be overly
distended. Some left upper quadrant free fluid. Possible areas of small bowel mucosal edema as well as colonic mucosal edema.
Assessment and plan: 89-year-old female with probable acute congestive heart failure with probable resultant passive congestion involving liver and GI viscera accounting for gallbladder wall thickening, small volume of ascites and colitis/enteritis
findings.
There are no clinical signs suggestive of cholecystitis. Abdominal examination without any tenderness.
Recommend expectant management of the gallbladder without any further imaging unless clinical course changes.
Spoke with patient's son via phone call regarding surgical recommendations
Updated hospitalist as well.
Signing off, please call if can be of further assistance with patient's care
Original Note:
Consultation
-
Date/Time Consultation Requested: 05/05/25, 5:30pm
Date/Time Consultation Performed: 05/06/25, 9:30am
Requesting Provider: Nakul Guzmán
Performing Provider: Francesco Sanchez
Reason for Consultation: abd pain, CT c/f cholecystitis
Medical History
-
Chief Complaint: abd pain, confusion
History of Present Illness:
Leni Cantor is an 89yo F with a PMH notable for dementia, a fib (on eliquis), & HLD who p/w 24hr of worsening confusion and generalized pain. Surgery consulted to eval for acute cholecystitis, given findings on CT ap.
Patient had a fall a few days ago and hit her face, lives at [facility] ([facility] Over 24hr prior to admission, pt had increasing levels of confusion and was complaining of overall pain in body. Denied fever/chills, CP, diarrhea. No abd pain on exam in ED
but noted bilateral LE edema & had urine with gross hematuria. Labs notable for moderately elevated tbili (1.7) and decreased Cr (0.5). Urinalysis with +leuk esterase and RBCs. WBC, LFT, alk phos wnl. CT a/p without contrast was read as:
'1. Mild diffuse pancolitis (probably infectious in etiology).
2. Severe colonic diverticulosis.
3. Small volume of pelvic ascites.
4. Moderate enteritis throughout the jejunum.
5. Severe gallbladder wall thickening, gallbladder distention, and cholelithiasis.
6. Mild hepatomegaly with suggestion of passive hepatic venous congestion.
7. Mild diffuse urinary bladder wall thickening suggesting cystitis.
8. Moderate cardiomegaly with evidence for right heart failure.
9. Moderate-sized right and small left pleural effusions.
10. Severe multilevel lumbar discogenic degenerative disease.'
Pt started on abx (flagyl & ceftriaxone), made NPO, started on IVF, eliquis held, pain meds PRN (morphine, tylenol, tramadol).
This am, pt well appearing without complaints of abdominal pain, n/v, fever/chills.
Past Medical History
Past Medical History: Other (atrial fibrillation; dementia)
Past Surgical History: None
Social History
Living: [facility]
Allergies / Home Medications
Allergy/AdvReac Type Severity Reaction Status Date / Time
Penicillins Allergy Unknown Verified 05/05/25 20:00
�Medication �Instructions �Recorded �Confirmed �Type
alprazolam 0.25 mg tablet 0.25 mg PO DAILY 05/05/25 05/05/25 History
apixaban 2.5 mg tablet (Eliquis) 2.5 mg PO BID 05/05/25 05/05/25 History
azithromycin 250 mg tablet 0 mg PO .COMPLEX 05/05/25 05/05/25 History
cholecalciferol (vitamin D3) 25 25 mcg PO DAILY 05/05/25 05/05/25 History
mcg (1,000 unit) tablet (Vitamin
D3)
digoxin 125 mcg (0.125 mg) tablet 125 mcg PO DAILY 05/05/25 05/05/25 History
docusate sodium 100 mg capsule 100 mg PO DAILY 05/05/25 05/05/25 History
donepezil 10 mg tablet 10 mg PO HS 05/05/25 05/05/25 History
escitalopram oxalate 10 mg tablet 10 mg PO DAILY 05/05/25 05/05/25 History
furosemide 20 mg tablet 20 mg PO DIRECTED 05/05/25 05/05/25 History
guaifenesin 600 mg tablet, 600 mg PO BID 05/05/25 05/05/25 History
extended release 12 hr
lidocaine 4 % topical patch 1 patch topical DAILY 05/05/25 05/05/25 History
loperamide 2 mg capsule 2 mg PO Q4HPRN PRN loose stools 05/05/25 05/05/25 History
metoprolol succinate 25 mg 25 mg PO DAILY 05/05/25 05/05/25 History
tablet,extended release 24 hr
naproxen 500 mg tablet 500 mg PO BID 05/05/25 05/05/25 History
phenylephrine 0.25 %-mineral oil 1 applic OR Q6HPRN PRN rectal pain 05/05/25 05/05/25 History
14 %-petrolatm 74.9 % rectal
ointment (Preparation H)
simvastatin 10 mg tablet 10 mg PO DAILY 05/05/25 05/05/25 History
Review of Systems
-
Unable to obtain full review of systems at this time due to: Dementia
History Source: Patient
Abdomen/GI: No Symptoms
: Bleeding
A 10 point review of systems was completed, and was negative except as per HPI.
Physical Exam
Vital Signs
Temp Pulse Resp BP Pulse Ox
97.7 F 88 20 147/81 93
05/06/25 11:06 05/06/25 11:06 05/06/25 11:06 05/06/25 11:06 05/06/25 11:06
05/05/25 05/06/25 05/07/25
06:59 06:59 06:59
Actual Weight 56.444 kg
Body Mass Index (BMI) 21.4
Lab Results
05/06/25 07:09
05/06/25 07:09
WBC 4.9 10^3/uL (4.8-10.8) 05/06/25 07:09
Hgb 11.6 g/dL (12.0-16.0) L 05/06/25 07:09
Hct 35.4 % (37.0-47.0) L 05/06/25 07:09
Plt Count 158 10^3/uL (130-400) 05/06/25 07:09
Abs Immat Gran (auto) 0.0 10^3/uL (0-0.05) 05/05/25 13:33
Neutrophils % 56.2 % (42.2-75.2) 05/05/25 13:33
Physical Exam
General: Well Nourished and No Apparent Distress
HEENT: Normocephalic, Anicteric and Atraumatic
Respiratory: Non Labored Respirations
GI: Soft, Non Tender and Non Distended
Musculoskeletal: Edema (1+ pitting edema bilateral LE to mid coombs)
Skin: Other (ecchymoses across L side face & on L coombs)
Neuro: Awake and Alert
Psych: Calm
Data Reviewed
-
CT Scan: Image Personally Visualized and interpreted, Report Reviewed by me and Discussed with Patient
Labs: Labs Reviewed by me
Critical Care Time (in minutes): 40
Total Time Spent with Patient (in minutes): 15
Assessment / Plan
-
Patient is an 89yo F with a PMH notable for dementia, a fib (on eliquis), & HLD who p/w 24hr of worsening confusion and generalized pain, with surgery consulted due to c/f acute cholecystitis on CT ap. No surgical intervention recommended, CT
findings likely 2/2 CHF rather than acute cholecystitis.
Assessment: Given lack of RUQ or any abd pain acute cholecystitis unlikely, which is also corroborated by lack of elevated WBC, alk phos, fever. Patient's CT scan demonstrated fluid around multiple abdominal organs, pleural effusions, & hepatic
congestion, along w new bilateral LE edema -- clinical picture more c/w congestive (rather than inflammatory) fluid around gallbladder 2/2 R-sided HF. Corroborated by results of echo today demonstrating HFrEF (LVEF 30-35%, dilated RA, LA, RV, severe
tricuspid regurg). Confusion, tachy, general pain/malaise on presentation likely 2/2 potential UTI (see +leuk esterase, gross hematuria) rather than any infectious process in gallbladder.
Plan:
- Medical mgmt of volume status, appreciate cards recs
- PRN pain control as needed
- Regular/cardiac diet as tolerated
- Surgery signed off
--- NOTE | 2025-05-06 12:06 | CM ---
Met with patient's son and daughter in law to obtain information for assessment. Patient's son in law stated that patient lives at the [facility] in their memory care unit which is locked. She can independently ambulate but does have a walker if she
needs it. She is agreeable and participates in community activities. She needs assistance with bathing, dressing, personal care and all other ADLs. She is redirectable and her son stated that she is one of the more higher functioning residents at
the facility.
Patient's son stated that he would prefer that patient go back to the [facility] when she is cleared medically and if rehab is needed, continue the rehab that she was participating in through the facility.
Attending updated.
Plan: Case management will continue to follow and assist with discharge planning. Patient's family would like for patient to return to the [facility].
--- NOTE | 2025-05-06 12:46 | PTCARENOTE ---
Assumed care of pt from previous nurse. pt reports pain as tolerable, generalized. Pt is on tele running afib. Pt call lin is within reach, pt does not ring, rounding in place, family at bedside. will cont to monitor.
--- NOTE | 2025-05-06 16:43 | W.PN.UPDATE ---
Update Note
Progress Note Update
I spoke with patient's son Nate and updated him on the cardiac issues. He has been told her heart pump was not strong in the past when AFIB was diagnosed- details unknown. I answered questions to the best of my ability. He tends to agree resumption
of Eliquis would be high risk (see Dr. Salas note). He would like an update from medical team tomorrow as well.
[2025-05-06] MEDS: STERILE WATER FOR INJECTION 10 ML IV (18:22)
[2025-05-06] MEDS: ROCEPHIN 1000 MG IV (18:22)
[2025-05-06 18:26] LABS: Troponin I < 0.012 ng/ml
[2025-05-06] MEDS: ARICEPT 10 MG PO (19:47)
[2025-05-06] MEDS: REMOVE LIDOCAINE PATCH 1 PATCH REMOVE (19:47)
[2025-05-07] VITALS (7 sets, daily range): BP systolic 100–138; BP diastolic 59–82; PULSE 85; O2SAT 95; BMI 20.2
[2025-05-07] MEDS: FLAGYL 500 MG 100 IV ×3 (02:28→17:32)
[2025-05-07] MEDS: TYLENOL 650 MG PO (02:34)
[2025-05-07 08:19] LABS: Blood Urea Nitrogen 18 mg/dl (7-17); Calcium 8.1 mg/dl (8.4-10.2); Carbon Dioxide 25 mmol/L (22-30); Chloride 110 mmol/L (98-107); Estimated Creatinine Clearance 56 ml/min; Glucose 83 mg/dl (70-99); Potassium 3.3 mmol/L (3.5-5.1); Sodium 139 mmol/L (135-145); eGFR > 60.00
--- NOTE | 2025-05-07 09:31 | W.PN.HOSP.TC ---
Addendum entered and electronically signed by Nakul Guzmán MD 05/07/25 13:10:
Patient's son updated at length over the phone. All questions were asked and answered. I did explain that considering the patient's advanced age, dementia, and acute heart failure with reduced ejection fraction with severe TR that, moving forward,
it would likely be better to focus on quality of life as opposed to quantity. The patient's son reported to me that he likely will transition the patient to palliative care and potentially hospice in the near future after discharge.
Original Note:
Today's Communication/Plan
-
see plan
Assessment / Plan
Assessment / Plan
Gen: NAD, AAOx3.
Eyes: EOMI, PERRLA, no scleral icterus.
Neck: supple.
CV: RRR, +S1/S2, no m/r/g.
Resp: CTAB, no rales, wheezes, or rhonchi.
Abd: +BS, soft, NT, ND
Skin: No rashes.
Neuro: CN 2-12 intact, non-focal.
Psych: Normal mood and affect.
Gen: NAD, Awake and alert
Eyes: EOMI, PERRLA, no scleral icterus.
ENMT: Nasal bridge abrasion, periorbital/facial ecchymoses
Neck: supple.
CV: RRR, +S1/S2, no m/r/g.
Resp: CTAB, no rales, wheezes, or rhonchi.
Abd: +BS, soft, NT, ND
Skin: No rashes. 1+ LLE, ecchymoses throughout the left lower extremity
Neuro: CN 2-12 intact, non-focal.
Psych: Normal mood and affect.
05/05/25 20:42 Nose MRSA Screen - Final
No Methicillin Resistant Staphylococcus aureus isolated.
05/06/25 16:55 Feces/Stool Stool Leukocytes - Final
05/06/25 16:55 Feces/Stool Cryptosporidium/Giardia - Final
Negative for Cryptosporidium and/or Giardia Lamblia
antigens.
05/06/25 16:55 Feces/Stool C. difficile GDH Antigen & Toxins - Final
Negative for toxigenic C.difficile
05/05/25 14:45 Urine Urine Culture - Final
NO GROWTH
CT brain: No acute intracranial abnormality noted.
CT A/P w/o contrast:
1. Mild diffuse pancolitis (probably infectious in etiology).
2. Severe colonic diverticulosis.
3. Small volume of pelvic ascites.
4. Moderate enteritis throughout the jejunum.
5. Severe gallbladder wall thickening, gallbladder distention, and cholelithiasis.
6. Mild hepatomegaly with suggestion of passive hepatic venous congestion.
7. Mild diffuse urinary bladder wall thickening suggesting cystitis.
8. Moderate cardiomegaly with evidence for right heart failure.
9. Moderate-sized right and small left pleural effusions.
10. Severe multilevel lumbar discogenic degenerative disease.
Echo: EF 30-35%. Global hypokinesis with septal and apical dyskinesis. Mildly enlarged RV size. Normal RV systolic function. Severely dilated LA. Massively dilated RA. Mild to mod MR/AR. Very severe (torrential) TR. Estimated PASP 40-45 mmHg.
Acute metabolic encephalopathy:
-in the setting of underlying dementia/baseline cognitive dysfunction
-UTI has been ruled out with NEG UCx
-CT A/P notable for pancolitis, moderate enteritis throughout the jejunum, severe GB wall thickening, GB distention, and cholelithiasis
-cont Rocephin/Flagyl
-as per discussion with Dr. Sanchez, no acute cholecystitis at this time. CT scan findings are likely due to passive congestion from congestive heart failure.
-advanced to clears
-IVFs stopped 05/06/25AM with acute HFrEF below
-appreciate GI. As per discussion with pt's son, conservative management only. He would not want the patient have a colonoscopy.
-patient does have rectal prolapse which can lead to rectal bleeding.
Hematuria:
-exacerbated by Eliquis
-holding Eliquis
-trend Hb (drop in Hb is acute blood loss anemia)
-urology saw in c/s
-at this time risk of AC outweighs benefit
PAF:
-with RVR
-increase Toprol XL to 50mg daily
-cont Dig
-holding Eliquis with hematuria as above
Acute HFrEF:
-B/L LE edema that was worsening on admission
-proBNP 2320
-Echo above, EF 30%, severe TR
-cards following
-daily weights, I/O's
-initiate FR once on solid food
-cont Lasix 40mg IV BD
-cont BB/ACEi/aldactone
-further GDMT as hemodynamics allow
Dementia:
-cont Aricept/lexapro
Hypokalemia:
-40meq PO K
-check Mg
Considering the patient's overall burden of pathology and her current active problem of acute heart failure with reduced ejection fraction in the setting of dementia it is reasonable to consult palliative care (c/s placed 05/06/25).
DNR
DVT proph: With edema and and ecchymoses in the left lower extremity in the setting of recent hematuria, I am opting for venous foot pumps only at this time for DVT prophylaxis. Encourage ambulation with RN.
Anticipated Discharge: 24 - 48 hours
Subjective/Interval History
-
Date of Service: May 07, 2025
No new complaints.
Objective Data
-
Labs:
Laboratory Results
05/07/25
07:17
Sodium 139
Potassium 3.3 L
Chloride 110 H
Carbon Dioxide 25
BUN 18 H
Creatinine 0.5 L
Glucose 83
Calcium 8.1 L
Vital Signs:
Vital Signs
Temp Pulse Resp BP Pulse Ox
97.9 F 88 18 117/78 98
05/07/25 07:18 05/07/25 07:18 05/07/25 07:18 05/07/25 07:18 05/07/25 09:29
I&O
05/06/25 05/07/25 05/08/25
06:59 06:59 06:59
Intake Total 450 / 450 120 / 120
Output Total 100 / 100
Balance 350 / 350 120 / 120
[2025-05-07] MEDS: LIDOCAINE 4% PATCH 1 PATCH TOPICAL (09:32)
--- NOTE | 2025-05-07 09:32 | W.PN.CD ---
Addendum entered and electronically signed by Irineo Gardner MD 05/07/25 11:24:
Patient seen and examined in collaboration with HYDROGEN PLANT OPERATOR; agree with below.
- Continue Lasix 40 mg IV BID today; transition to 40 mg PO daily tomorrow.
- Conservative management; no aggressive measures--palliative care consulted.
- Would not resume Eliquis secondary to hematuria and fall risk (recent fall with resultant nasal fracture).
- Cardiology will remain available on an as-needed basis.
Original Note:
Today's Communication / Plan
-
Replace potassium
1 more day of IV diuresis, likely PO tomorrow
Continue current GDMT
Impression / Plan
-
HFrEF: possibly acute, but unclear
-I spoke with patient's son Nate yesterday and updated him on the cardiac issues. He has been told her heart pump was not strong in the past when AFIB was diagnosed- details unknown.
-05/06/25: Left ventricular ejection fraction is 30-35%. Global hypokinesis with septal and apical dyskinesis. Mildly enlarged right ventricular size. Normal right ventricular systolic function. Severely dilated left atrium. Massively dilated right
atrium. Mild to moderate mitral regurgitation. Mild to moderate aortic regurgitation. Very severe (torrential) tricuspid regurgitation. Estimated pulmonary artery pressure of 40-45 mmHg. Pleural effusion present.
-conservative management appropriate here- we have initiated GDMT and she is tolerating- metoprolol increased, spironolactone and lisinopril added.
-type of CM unknown. Trops unremarkable.
-continue IV lasix, which requires intensive monitoring. Lungs clear, still with LE edema. I think she needs one more day, then can move to PO. Hypokalemia is noted and being replaced.
AFIB, likely permanent:
-rate is okay
-on metoprolol, digoxin, and Eliquis as OP. Eliquis is held due to hematuria. Patient also with recent fall and nasal fracture. Uncertain as to whether the patient can safely resume anticoagulation due to bleeding risk and fall risk; especially
given her dementia, placing her back on Eliquis would likely be high risk. I reviewed this with son on phone call yesterday and he tends to agree resumption of Eliquis would be high risk.
Hematuria:
-urology is on the case
-Eliquis held- see notes above
Pancolitis, enteritis, GB thickening:
-Abd/pelvis CT: 1.Mild diffuse pancolitis (probably infectious in etiology). 2. Severe colonic diverticulosis. 3. Small volume of pelvic ascites. 4. Moderate enteritis throughout the jejunum. 5. Severe gallbladder wall thickening, gallbladder
distention, and cholelithiasis. 6. Mild hepatomegaly with suggestion of passive hepatic venous congestion. 7. Mild diffuse urinary bladder wall thickening suggesting cystitis.8. Moderate cardiomegaly with evidence for right heart failure.9.
Moderate-sized right and small left pleural effusions. 10. Severe multilevel lumbar discogenic degenerative disease.
-patient on ABX
-GI c/s
Dementia:
-on meds and lives in facility
I discussed case with Dr. Guzmán, who will speak with patient's son today and is consulting palliative care
Physical Exam
Vital Signs/Labs
Vital Signs
Temp Pulse Resp BP Pulse Ox
97.9 F 88 18 117/78 98
05/07/25 07:18 05/07/25 07:18 05/07/25 07:18 05/07/25 07:18 05/07/25 09:29
05/06/25 05/07/25 05/08/25
06:59 06:59 06:59
Actual Weight 56.444 kg 53.297 kg
05/06/25 07:09
05/07/25 07:17
Digoxin 0.7 ng/ml (0.8-2.0) L 05/05/25 13:33
05/05/25
13:33
Eue-C-Xijkycnnzym Pept 2320
LAB Results
05/06/25 05/06/25
10:33 17:54
Troponin I 0.014 < 0.012
Physical Exam
Constitutional: No acute distress
EENT: Anicteric
Cardiovascular: Rhythm/rate is irregular
Respiratory: Respiratory effort normal and Lungs clear to auscul.
Neuro/Psych: Alert and Oriented (self)
Data Reviewed
-
Date of Service: May 07, 2025
EKG: Other (AFIB tele)
Labs: Labs Reviewed by me
[2025-05-07] MEDS: ALDACTONE 12.5 MG PO (09:36)
[2025-05-07] MEDS: COLACE 100 MG PO (09:36)
[2025-05-07] MEDS: LIPITOR 10 MG PO (09:37)
[2025-05-07] MEDS: LASIX 40 MG IV ×2 (09:37→16:39)
[2025-05-07] MEDS: LEXAPRO 10 MG PO (09:37)
[2025-05-07] MEDS: TOPROL XL 50 MG PO (09:37)
[2025-05-07] MEDS: ZESTRIL 5 MG PO (09:37)
[2025-05-07] MEDS: FLUSH (NSS) 1 FLUSH IV ×3 (09:38→17:33)
[2025-05-07] MEDS: KCL 40 MEQ PO (09:49)
[2025-05-07 10:21] LABS: Magnesium 1.8 mg/dl (1.6-2.3)
--- NOTE | 2025-05-07 10:22 | W.PN.URO.CBU ---
Today's Communication / Plan
-
plan per hospialist
Assessment / Plan
-
possible blood in toilet none her average cyt scan no gu patholgy
Diagnosis
-
Date of Service: May 07, 2025
-
Patient Diagnosis:
Post Op Day:
Patient Diagnosis:possible hematuria unkbnown source ct scan mld cystiti no cancer stones hydro urine cx neg no blood sen
Post Op Day:
Subjective
-
poor communication
Objective
-
Vital Signs
Temp Pulse Resp BP Pulse Ox
97.9 F 88 18 117/78 98
05/07/25 07:18 05/07/25 09:37 05/07/25 07:18 05/07/25 09:37 05/07/25 09:29
Intake and Output
05/06/25 05/07/25 05/08/25
06:59 06:59 06:59
Intake Total 450 / 450 120 / 120
Output Total 100 / 100
Balance 350 / 350 120 / 120
Intake:
Oral fluids 120 / 120
IV fluids (Total) 350 / 350
IV piggybacks 100 / 100
Output:
Urine, Voided 100 / 100
Other:
Number of approximated SMALL 1
amounts of urine
Number of approximated MODERATE 2
amounts of urine
Number of approximated LARGE 1
amounts of urine
How many times incontinent 3
SATURATED amount urine
Laboratory Results
05/06/25 07:09
05/07/25 07:17
Review of Systems
-
: No Symptoms
Physical Exam
-
General - well developed, well nourished, no acute distress
Chest - clear bilaterally
Abdomen - soft, non-tender, positive bowel sounds, no CVAT, no incisional pain or distention
Genitalia - normal
Rectal - normal
Skin - warm & dry with no rash
Neuro - AOx3, no motor deficits
Extremities - no clubbing, no cyanosis, no edema
Incision - clean, dry
--- NOTE | 2025-05-07 11:24 | W.CON.PAL ---
Consultation
-
Date/Time Consultation Requested: 05/06
Date/Time Consultation Performed: 05/07
Requesting Provider: Dr Guzmán
Performing Provider: Roz Salas
Reason for Consult: Goals of Care Discussion
Reason for Admission
Illness Course/HPI
89 year old F with PMH of dementia, recent fall with nasal fx, afib previously on eliquis admitted with AMS. Upon admission CT with pancolitis, possible gallbladder inflammation, started on ABX. Seen by surgery who feel no active gallbladder issues.
Urine negative for UTI. Echo with severe valvular disease, EF 30%. Treating for CHF exacerbation. Also with some blood in stool, rectal prolapse. Son deferring colonoscopy at this time, wants nothing invasive. Also agrees with no eliquis given high
fall risk.
No family at bedside, patient unable to contribute history.
Spoke to son via phone. Has a good understanding of her medical issues. Prior to hospital was at [facility] in memory care. Needs assistance with ADLs and iADLs but was eating, feeding self and parcitipating in activities at the facility. We discussed
needs moving forward including with new CHF, dementia. High risk for repeat hospitalizations and complications which he understands. We disucssed hospice as an option either now or in the future - he is familiar as his father was recently on
hospice. Doesnt feel like patient is quite there yet but knows its probably in the near future. Goal is to get her back to [facility] where she is familiar and see how she does. Knows hospice is an option at any time in the future. DNR/DNI
Goals of Care Discussion
-
Individuals Present for Discussion & Relationship to Patient:
see above
Objective Data
-
Objective Data:
Vital Signs
Temp Pulse Resp BP Pulse Ox
98.3 F 89 16 100/61 96
05/07/25 11:22 05/07/25 11:22 05/07/25 11:22 05/07/25 11:22 05/07/25 11:22
Laboratory Results
05/06/25 07:09
05/07/25 07:17
Total Protein 5.5 g/dl (6.3-8.2) L 05/06/25 07:09
Albumin 3.0 g/dl (3.5-5.0) L 05/06/25 07:09
Urine Color [place] 05/05/25 14:45
Urine Clarity Cloudy (Clear) 05/05/25 14:45
Urine pH 7.0 (5.0-9.0) 05/05/25 14:45
Ur Specific [place] 1.010 (<1.030) 05/05/25 14:45
Urine Ketones 1+ (Negative) A 05/05/25 14:45
Urine Bilirubin 1+ (Negative) A 05/05/25 14:45
Palliative Performance Scale
Palliative Performance Scale:
PPS Level Ambulation Activity & Evidence of Disease Self Care Intake Conscious Level
100% Full Normal Activity & Work; Full Intake Full
No Evidence of Disease
90% Full Normal Activity & Work; Full Normal Full
Some Evidence of Disease
80% Full Normal Activity with Effort Full Normal or Full
Some Evidence of Disease Reduced
70% Reduced Unable Normal Job/Work Full Normal or Full
Significant Disease Reduced
60% Reduced Unable Hobby/Housework Occasional Normal or Full or Confusion
Significant Disease Assistance Reduced
50% Mainly Sit/Lie Unable to do Any Work Considerable Normal or Full or Confusion
Extensive Disease Assistance Req'd Reduced
40% Mainly in Bed Unable to do Most Activity Mainly Assistance Normal or Full or Drowsy;
Extensive Disease Reduced +/- Confusion
30% Totally Bed Unable to do Any Activity Total Care Normal or Full or Drowsy;
Bound Extensive Disease Reduced +/- Confusion
20% Totally Bed Bound Unable to do Any Activity Total Care Minimal to Full or Drowsy;
Extensive Disease Sips +/- Confusion
10% Totally Bed Bound Unable to do Any Activity Total Care Mouth Care Drowsy or Coma;
Extensive Disease Only +/- Confusion
0%
PPS Score Level:
Palliative Performance Score Response
Palliative Performance Score Response: 50%
Physical Exam
-
General: Well Developed and No Apparent Distress
Respiratory: Clear to Auscultation
GI: Soft
Skin: Warm
Neuro: Awake
Psych: Confused and Apparent Dementia
Assessment / Plan
-
Assessment/Plan:
89 year old F with dementia, new CHF
- see [facility] for discussion with son
- goal to return to [facility] - knows hospice is an option in the future if she declines further
Care Reviewed
Data Reviewed
Chest X ray: Image Reviewed
Echocardiogram: Report Reviewed
Medical Tests: I reviewed
Reviewed with: Patient, Family and Physician
[2025-05-07] MEDS: LANOXIN 125 MCG PO (12:06)
--- NOTE | 2025-05-07 16:16 | PTCARENOTE ---
Pt awake and alert, oriented to self/birthdate; occ to 'hospital'; poor short-term memory; very forgertful; anxious/tearful at times; emotional support given. ORTEGA; OOB to BR/chair with assist x1/walker,; no c/o weakness/dizziness. VSS.
Telemetry:A fib. On room air- pulse ox 94%, no SOB noted. Abd soft, rounded, ricardo clear liquids, appetite fair. Incont small amts soft/loose brown BM with voiding. Voids on BSC/in BR; occ incont urine after IV Lasix given. Multiple bruised areas
on face/LLE. restingi n bed at present. Will continue to monitor.
--- NOTE | 2025-05-07 17:18 | CM ---
Spoke with attending who stated that patient will be discharged tomorrow. Placed a call to the [facility] and spoke with Jennifer who stated that she will make staff aware that patient will be returning tomorrow. Spoke with PT who stated that patient is
appropriate for return to memory care. Medical necessity and transfer sheet still need to be completed.
Plan: Case management will continue to follow and assist with discharge planning. Back to the [facility].
[2025-05-07] MEDS: STERILE WATER FOR INJECTION 10 ML IV (17:32)
[2025-05-07] MEDS: ROCEPHIN 1000 MG IV (17:32)
[2025-05-07] MEDS: ARICEPT 10 MG PO (21:23)
[2025-05-07] MEDS: REMOVE LIDOCAINE PATCH 1 PATCH REMOVE (21:23)
[2025-05-08] MEDS: FLAGYL 500 MG 100 IV ×2 (02:08→10:33)
[2025-05-08 03:06] VITALS: BP 117/68
[2025-05-08 05:16] VITALS: BMI 20.3
[2025-05-08 07:30] VITALS: BP 112/76
[2025-05-08 07:41] LABS: Hematocrit 35.7 % (37.0-47.0); Hemoglobin 11.5 g/dL (12.0-16.0); Mean Corp Hgb Conc. 32.2 g/dL (33.0-37.0); Mean Corpuscular Volume 98.1 fL (81.0-99.0); Platelet Count 165 10^3/uL (130-400); Red Cell Dist. Width 14.5 % (11.5-14.5)
[2025-05-08 08:08] LABS: Blood Urea Nitrogen 15 mg/dl (7-17); Calcium 8.2 mg/dl (8.4-10.2); Carbon Dioxide 28 mmol/L (22-30); Chloride 107 mmol/L (98-107); Estimated Creatinine Clearance 56 ml/min; Glucose 85 mg/dl (70-99); Potassium 3.4 mmol/L (3.5-5.1); Sodium 137 mmol/L (135-145); eGFR > 60.00
[2025-05-08] MEDS: ALDACTONE 12.5 MG PO (09:16)
[2025-05-08] MEDS: COLACE 100 MG PO (09:16)
[2025-05-08] MEDS: LASIX 40 MG PO (09:16)
[2025-05-08] MEDS: LIPITOR 10 MG PO (09:17)
[2025-05-08] MEDS: FLUSH (NSS) 1 FLUSH IV (09:17)
[2025-05-08] MEDS: ZESTRIL 5 MG PO (09:17)
[2025-05-08] MEDS: TOPROL XL 50 MG PO (09:17)
[2025-05-08] MEDS: LEXAPRO 10 MG PO (09:17)
[2025-05-08] MEDS: LIDOCAINE 4% PATCH 1 PATCH TOPICAL (09:18)
--- NOTE | 2025-05-08 09:38 | W.PN.HOSP.TC ---
Today's Communication/Plan
-
d/c
Assessment / Plan
Assessment / Plan
Gen: NAD, Awake and alert
Eyes: EOMI, PERRLA, no scleral icterus.
ENMT: Nasal bridge abrasion, periorbital/facial ecchymoses
Neck: supple.
CV: irreg/irreg +S1/S2, no m/r/g.
Resp: remains CTAB, no rales, wheezes, or rhonchi.
Abd: +BS, soft, NT, ND
Skin: No rashes. remains 1+ LLE, ecchymoses throughout the left lower extremity
Neuro: CN 2-12 intact, non-focal.
Psych: Normal mood and affect.
05/05/25 20:42 Nose MRSA Screen - Final
No Methicillin Resistant Staphylococcus aureus isolated.
05/06/25 16:55 Feces/Stool Stool Leukocytes - Final
05/06/25 16:55 Feces/Stool Cryptosporidium/Giardia - Final
Negative for Cryptosporidium and/or Giardia Lamblia
antigens.
05/06/25 16:55 Feces/Stool C. difficile GDH Antigen & Toxins - Final
Negative for toxigenic C.difficile
05/05/25 14:45 Urine Urine Culture - Final
NO GROWTH
CT brain: No acute intracranial abnormality noted.
CT A/P w/o contrast:
1. Mild diffuse pancolitis (probably infectious in etiology).
2. Severe colonic diverticulosis.
3. Small volume of pelvic ascites.
4. Moderate enteritis throughout the jejunum.
5. Severe gallbladder wall thickening, gallbladder distention, and cholelithiasis.
6. Mild hepatomegaly with suggestion of passive hepatic venous congestion.
7. Mild diffuse urinary bladder wall thickening suggesting cystitis.
8. Moderate cardiomegaly with evidence for right heart failure.
9. Moderate-sized right and small left pleural effusions.
10. Severe multilevel lumbar discogenic degenerative disease.
Echo: EF 30-35%. Global hypokinesis with septal and apical dyskinesis. Mildly enlarged RV size. Normal RV systolic function. Severely dilated LA. Massively dilated RA. Mild to mod MR/AR. Very severe (torrential) TR. Estimated PASP 40-45 mmHg.
Acute metabolic encephalopathy:
-in the setting of underlying dementia/baseline cognitive dysfunction
-UTI has been ruled out with NEG UCx
-CT A/P notable for pancolitis, moderate enteritis throughout the jejunum, severe GB wall thickening, GB distention, and cholelithiasis
-cont Rocephin/Flagyl
-as per discussion with Dr. Sanchez, no acute cholecystitis at this time. CT scan findings are likely due to passive congestion from congestive heart failure.
-advanced to clears
-IVFs stopped 05/06/25 with acute HFrEF below
-appreciate GI. As per discussion with pt's son, conservative management only. He would not want the patient have a colonoscopy.
-patient does have rectal prolapse which can lead to rectal bleeding.
Hematuria:
-exacerbated by Eliquis
-holding Eliquis
-Hb now stable (drop in Hb is acute blood loss anemia)
-urology saw in c/s
-at this time risk of AC (fall risk, hematuria) outweighs benefit, no further eliquis
PAF:
-with RVR
-cont Toprol XL to 50mg daily
-cont Dig
-holding Eliquis with hematuria as above
Acute HFrEF:
-B/L LE edema that was worsening on admission
-proBNP 2320
-Echo above, EF 30%, severe TR
-cards following
-daily weights, I/O's
-initiate FR once on solid food
-cont Lasix 40mg IV BD
-cont BB/ACEi/aldactone
-further GDMT as hemodynamics allow
Dementia:
-cont Aricept/lexapro
Hypokalemia:
-40meq PO K today followed by 20meq daily
On 05/07/25 the patient's son updated at length over the phone. All questions were asked and answered. I did explain that considering the patient's advanced age, dementia, and acute heart failure with reduced ejection fraction with severe TR that,
moving forward, it would likely be better to focus on quality of life as opposed to quantity. The patient's son reported to me that he likely will transition the patient to palliative care and potentially hospice in the near future after discharge.
DNR
DVT proph: With edema and and ecchymoses in the left lower extremity in the setting of recent hematuria, I am opting for venous foot pumps only at this time for DVT prophylaxis. Encourage ambulation with RN.
Total time spent on d/c = 33 min. This included today's physical exam, progress note, review of laboratory and diagnostic data, preparation of discharge documents and prescriptions, and discussions about the pt's hospital course and discharge plan
with the patient and other manager medical device involved in the patient's care.
Anticipated Discharge: Today
Subjective/Interval History
-
Date of Service: May 08, 2025
No new complaints.
Objective Data
-
Labs:
Laboratory Results
05/08/25
07:13
WBC 5.3
Hgb 11.5 L
Hct 35.7 L
Plt Count 165
Sodium 137
Potassium 3.4 L
Chloride 107
Carbon Dioxide 28
BUN 15
Creatinine 0.5 L
Glucose 85
Calcium 8.2 L
Vital Signs:
Vital Signs
Temp Pulse Resp BP Pulse Ox
98.4 F 91 16 112/76 93
05/08/25 07:30 05/08/25 09:16 05/08/25 07:30 05/08/25 09:16 05/08/25 07:30
I&O
05/07/25 05/08/25 05/09/25
06:59 06:59 06:59
Intake Total 120 / 120 1140 / 1140 480 / 480
Balance 120 / 120 1140 / 1140 480 / 480
[2025-05-08] MEDS: KCL 40 MEQ PO (10:33)
[2025-05-08 11:20] VITALS: BP 107/71
[2025-05-08] MEDS: LANOXIN 125 MCG PO (12:54)
--- NOTE | 2025-05-08 13:59 | PTCARENOTE ---
Called [facility] to provide report. No RN on duty on the weekend, med tech only. Contacted [employer] (Domenica) if ok to provide report to [facility]. Domenica indicated that is fine. Provided report to Michelle at [facility]. Discharge packet sent
with pt. Son transporting pt to [facility].
--- NOTE | 2025-05-08 17:09 | CM ---
Patient from [facility] with Dx Acute metabolic encephalopathy, hematuria, PAF, HF. Room air. PT recommended skilled rehab v home PT. OT recommended HH.
Spoke with Michelle, Lead Audience at [facility] (ph [phone]); there is no nurse on today so she is the correct contact re; patient's returning to them. Michelle is agreeable with referral to [facility] for PT/OT.
Met with patient's son FARZAD Sullivan & DIL; son agrees with d/c today back to [facility]. IMM completed. Son aware that [facility] was set up for PT/OT. He will provide transport for his mother back to [facility].
Referral to [facility] (fax [phone]) for PT/OT; accepted in [facility].
Plan return to [facility] today with [facility] with son transporting,
--- NOTE | 2025-05-09 13:11 | W.DCSUMMARY ---
Discharge Summary
Discharge Data
Date of Admission: 05/05/25
Date of Discharge: 05/08/25
-
Pending Results: No
Hospital Course
Primary diagnoses:
Pancolitis
Hematuria, exacerbated by Eliquis
Paroxysmal atrial fibrillation
Acute heart failure with reduced ejection fraction
Secondary diagnoses:
Dementia
Hypokalemia
Rectal prolapse
Consultants:
Gastroenterology
Cardiology
Urology
Palliative care
General Surgery
Imaging:
CT brain: No acute intracranial abnormality noted.
CT A/P w/o contrast:
1. Mild diffuse pancolitis (probably infectious in etiology).
2. Severe colonic diverticulosis.
3. Small volume of pelvic ascites.
4. Moderate enteritis throughout the jejunum.
5. Severe gallbladder wall thickening, gallbladder distention, and cholelithiasis.
6. Mild hepatomegaly with suggestion of passive hepatic venous congestion.
7. Mild diffuse urinary bladder wall thickening suggesting cystitis.
8. Moderate cardiomegaly with evidence for right heart failure.
9. Moderate-sized right and small left pleural effusions.
10. Severe multilevel lumbar discogenic degenerative disease.
Echo: EF 30-35%. Global hypokinesis with septal and apical dyskinesis. Mildly enlarged RV size. Normal RV systolic function. Severely dilated LA. Massively dilated RA. Mild to mod MR/AR. Very severe (torrential) TR. Estimated PASP 40-45 mmHg.
89-year-old female who presented with chief complaint of confusion as outlined in the H&P done on admission. Hospital course by problem list:
Acute metabolic encephalopathy: This appears to be multifactorial and due to pancolitis and acute heart failure with reduced ejection fraction in the setting of underlying dementia/baseline cognitive dysfunction.
Pancolitis: Imaging findings above. The patient was afebrile and without leukocytosis on admission and while hospitalized. The patient was nontender on abdominal exam on admission patient was treated with Rocephin and Flagyl while hospitalized. On
05/09/25 seven days of Ceftin and Flagyl were sent to the patient's pharmacy to complete 10 days total of antibiotic therapy (please see update note). Patient was seen in consultation by GI and the patient's son reported that he would not want the
patient have a colonoscopy. Regarding the concern for acute cholecystitis patient was seen in consultation by general surgery. As per discussion with Dr. Sanchez, no acute cholecystitis at this time. CT scan findings are likely due to passive
congestion from congestive heart failure.
Hematuria: This was exacerbated by Eliquis which was stopped and not restarted. The patient had acute blood loss anemia due to hematuria which was mild. Hemoglobin was stable at the time of discharge. It was determined that the risk of
anticoagulation (fall risk, hematuria) outweighed the benefits and Eliquis was not restarted.
PAF with RVR: The patient was started on Toprol XL which was increased to 50mg daily. Her digoxin was continued. Her Eliquis was not restarted as above.
Acute HFrEF: The patient had bilateral lower extremity edema that had been worsening prior to admission. proBNP 2320, Echo above, EF 30%, severe TR. patient was seen in consultation by cardiology. She was diuresed with IV Lasix. She was treated
with BB/ACEi/aldactone. She was discharged on oral lasix and daily potassium supplementation.
Discharge Plan
-
Patient Disposition: Assisted Living
Discharge Diagnosis/Procedures: Acute metabolic encephalopathy, pancolitis, hematuria, paroxysmal atrial fibrillation, acute heart failure with reduced ejection fraction
Condition: Fair
Diet: Low Residue
Additional Diets: Fluid restrict to 1200 cc/day
Activity: With assistance
Driving Restrictions: No driving
Blood Work: BMP and CBC in 1 week, prescription from PCP
Specialty Instructions: Weigh Daily- Call MD for wt gain/loss 3 lbs overnight/5 lbs in 1 week
Referrals:
Americo Golden MD [Active, Urology]
Referral Note: you had blood possibly in urine if problems call dr golden urology [phone] to set up routine ofice visit when you are feeling osmel 4- [address] from [address] the [address] lowery was basically norml for urology pathology no
cancver stones or blockage
JULIO VERA NP [Family Provider, Family Practice] - in less than 1 week
Prescriptions:
New
furosemide 40 mg Tablet
40 mg PO DAILY Qty: 30 0RF
atorvastatin 10 mg Tablet
10 mg PO DAILY Qty: 30 0RF
spironolactone 25 mg Tablet
12.5 mg PO DAILY Qty: 30 0RF
potassium chloride 20 mEq Tablet,Er Particles/Crystals
20 meq PO DAILY Qty: 30 0RF
lisinopril 5 mg Tablet
5 mg PO DAILY Qty: 30 0RF
metoprolol succinate 25 mg Tablet Extended Release 24 Hr
50 mg PO DAILY Qty: 30 0RF
cefuroxime axetil 500 mg tablet
500 mg PO BID 7 Days Qty: 14 0RF
metronidazole 500 mg tablet
500 mg PO TID Qty: 21 0RF
Continued
donepezil 10 mg Tablet
10 mg PO HS
alprazolam 0.25 mg Tablet
0.25 mg PO DAILY
docusate sodium 100 mg Capsule
100 mg PO DAILY
digoxin 125 mcg (0.125 mg) Tablet
125 mcg PO DAILY
escitalopram oxalate 10 mg Tablet
10 mg PO DAILY
lidocaine 4 % Adhesive Patch,Medicated
1 patch TOPICAL DAILY
Rx Instructions:
Apply to back
loperamide 2 mg Capsule
2 mg PO Q4HPRN PRN (Reason: loose stools)
cholecalciferol (vitamin D3) [Vitamin D3] 25 mcg (1,000 unit) Tablet
25 mcg PO DAILY
Preparation H 0.25-14-74.9 % Ointment
1 applic TX Q6HPRN PRN (Reason: rectal pain)
guaifenesin 600 mg Tablet Extended Release 12hr
600 mg PO BID
Rx Instructions:
Starting 05/05/25: take 1 tab PO BID x 7 days
Discontinued
azithromycin 250 mg Tablet
0 mg PO .COMPLEX
Rx Instructions:
Starting 05/05/25:
Take 2 tabs PO daily x 1 day, then take 1 tab PO daily x 4 days
furosemide 20 mg Tablet
20 mg PO DIRECTED
Rx Instructions:
Starting 05/05/25: take 40 mg PO daily x 4 days, then decrease dose to 20 mg daily
Eliquis 2.5 mg Tablet
2.5 mg PO BID
simvastatin 10 mg Tablet
10 mg PO DAILY
metoprolol succinate 25 mg Tablet Extended Release 24 Hr
25 mg PO DAILY
naproxen 500 mg Tablet
500 mg PO BID
Discharge Orders:
Discharge Patient (As Directed); Ordered 05/08/25
Ordered By: Nakul Guzmán
Discharge Date and Time
Discharge Date/Time: 05/08/25 14:10
Print Language: MAORI
--- NOTE | 2025-05-09 13:19 | W.PN.UPDATE ---
Update Note
Progress Note Update
Ceftin and Flagyl x 7 days sent to pt's pharmacy. Pt's son updated over the phone and verbally acknowledge understanding that these meds need to be picked up and given to the pt.
== END 2025-05-08 14:10 | disposition home health service (06) | DRG 291 ==
LOC: 4 EAST ACU 18:33
PROVIDERS: Nurse Practitioner; Student in an Organized Health Care Education/Training Program; ADMITTING PHYSICIAN Internal Medicine; CONSULT PHYSICIAN Internal Medicine; CONSULT PHYSICIAN Nurse Practitioner Gerontology; CONSULT PHYSICIAN Specialist; CONSULT PHYSICIAN Surgery; EMERGENCY PHYSICIAN Emergency Medicine; FAMILY PHYSICIAN Nurse Practitioner Adult Health
DX: I11.0 Hypertensive heart disease with heart failure (principal); G93.41 Metabolic encephalopathy; I50.21 Acute systolic (congestive) heart failure; A09 Infectious gastroenteritis and colitis, unspecified; R18.8 Other ascites; D68.32 Hemorrhagic disorder due to extrinsic circulating anticoagulants; D62 Acute posthemorrhagic anemia; I42.9 Cardiomyopathy, unspecified; I48.0 Paroxysmal atrial fibrillation; E78.00 Pure hypercholesterolemia, unspecified; R16.0 Hepatomegaly, not elsewhere classified; K82.8 Other specified diseases of gallbladder; K62.3 Rectal prolapse; I34.0 Nonrheumatic mitral (valve) insufficiency; N30.91 Cystitis, unspecified with hematuria; E87.6 Hypokalemia; F03.90 Unspecified dementia, unspecified severity, without behavioral disturbance, psychotic disturbance, mood disturbance, and anxiety; I07.1 Rheumatic tricuspid insufficiency; S02.2XXD Fracture of nasal bones, subsequent encounter for fracture with routine healing; W19.XXXD Unspecified fall, subsequent encounter; Z60.2 Problems related to living alone; Z66 Do not resuscitate; Z88.0 Allergy status to penicillin; Z79.01 Long term (current) use of anticoagulants; Z90.710 Acquired absence of both cervix and uterus; Z91.81 History of falling
CPT/HCPCS: 36415; 70450; 74177; 80048; 80053; 80162; 81003; 81015; 83735; 83880; 84484; 85025; 85027; 87045; 87046; 87070; 87077; 87086; 87324; 87328; 87329; 87427; 87449; 89055; 93005; 93306; 93971; 97116; 97163; 97166; 99285; Q9967